=== PATIENT | male | born 1985 | race Caucasian/White ===

== ENCOUNTER 2021-12-14 09:43 | Emergency (ER) | payer OTHER ==
[~2021-12-14] VITALS: Ht 185.4 cm; Wt 104.3 kg
== END 2021-12-14 13:20 | disposition home or self-care (01) ==
LOC: ED 09:43
DX: S16.1XXA Strain of muscle, fascia and tendon at neck level, initial encounter (principal); S29.012A Strain of muscle and tendon of back wall of thorax, initial encounter; S20.20XA Contusion of thorax, unspecified, initial encounter; V89.2XXA Person injured in unspecified motor-vehicle accident, traffic, initial encounter
CPT/HCPCS: 70450; 71250; 72125; 99284-25